=== PATIENT | male | born 2000 | race Caucasian/White ===

== ENCOUNTER 2023-09-18 08:27 | Emergency (ER) | payer OTHER, SELFPAY ==
[2023-09-18 08:28] VITALS: BP 144/72; PULSE 74; RESP 16; TEMP 36.6; O2SAT 97; BMI 24.1
--- NOTE | 2023-09-18 08:44 | EX.ED.DYSGE1 ---
HPI History of Present Illness Chief Complaint: Abscess Narrative Narrative: 23-year-old male presents with his because of abscess on his right chest wall underneath his armpit. He states it has been there for a week and getting worse. It is painful to touch, and growing in size. He denies any fevers or chills. No nausea or vomiting. No significant past medical history. He states he had an abscess in the past which drained by itself. He states that there was a small pustule that he tried to pop a week ago. Since then, he has had increasing swelling on his right chest wall. No purulent drainage currently. PFSH [facility] Home Medications sulfamethoxazole 800 mg-trimethoprim 160 mg tablet (Bactrim DS) 1 tab PO BID #14 tabs 09/18/23 [Rx Last Taken Unknown] Allergy/AdvReac Type Severity Reaction Status Date / Time No Known Allergies Allergy Verified 09/18/23 08:27 ROS ROS ED ROS Narrative Constitutional: No fever, no chills. HEENT: No sore throat. No neck pain. No loss of vision. No rhinorrhea. Cardiovascular: No chest pain. No palpitations. No pedal edema. Respiratory: No cough, no shortness of breath. Abdominal: No abdominal pain. No nausea. No vomiting. Genitourinary: No dysuria. No hematuria. Musculoskeletal: No myalgias. No arthralgias. Neurologic: No headaches. No dizziness. No lightheadedness. Skin: No rash. Positive abscess on right chest wall under her armpit. EXAM Physical Exam Narrative Exam Narrative: Afebrile. Vital signs noted. Toxic-appearing. HEENT: Normocephalic. Atraumatic. PERRL, EOMI. Neck soft and supple. No point tenderness or step off. Cardiovascular: Regular rate and rhythm. No murmurs, rubs, or gallops appreciated. Respiratory: No tachypnea. Lungs clear to auscultation bilaterally. Gastrointestinal: Abdomen soft, nontender, with normoactive bowel sounds. No rebound or guarding. Neurological: Awake. Alert. Nonfocal, nonlateralizing. Skin: No rash. Given abscess with induration and mild fluctuance underneath the right axilla, more on right chest wall. Mild erythema surrounding. Musculoskeletal: No pedal edema. Full range of motion extremities. Const Vital Signs: 09/18/23 08:28 Temperature 98 F Temperature Source Temporal Pulse Rate 74 Respiratory Rate 16 Blood Pressure 144/72 H Blood Pressure Mean 96 Pulse Ox 97 MDM MDM MDM Narrative Medical decision making narrative: As he has a moderately sized abscess on his right chest wall, I do feel that incision and drainage should be performed. He was told of the risk of continued infection and scarring. As he has mild cellulitis, I do feel antibiotics would be indicated in the form of Bactrim. Incision and drainage will be performed. See procedure note for detail. He was given 1 Greer tablet here prior to the procedure for analgesia. See procedure note for details. I feel he can be discharged to follow-up with a primary care provider on Thursday for wound recheck. As the area was mildly cellulitic and it may have been more of an inclusion cyst that was infected based on the discharge, he will be placed on antibiotics in the form of Bactrim DS for the next 7 days to take twice a day. He was told to remove the packing in 48 hours, or return to the emergency department for removal and wound recheck. Disposition is discharged home in stable condition. Procedures Other Procedures Procedure(s): Incision and drainage: Patient prepped with Povidine iodine swab. Lidocaine 1% was injected locally into the area of most fluctuance. Stellate incision was made with a #11 blade. There was a moderate amount of purulent drainage and initially it was serosanguineous. Area was deloculated and irrigated with normal saline. Double tailed 1 inch packing was slightly inserted to keep the incision open. Patient was told of risk of reaccumulation of fluid. He will remove the packing in 48 hours, return to the emergency department, and have a wound check and the next 2 to 3 days. Patient tolerated procedure well. Discharge Plan Triage Chief Complaint: Abscess ED Provider: Lux Trivedi Dx/Rx/DC Orders Clinical Impression: Abscess, Encounter for incision and drainage procedure Instructions: ED Abscess Incision And Drainage, ED Cellulitis, Epidermoid Cyst Infect Antibiotics Prescriptions: New sulfamethoxazole-trimethoprim [Bactrim DS] 800-160 mg tablet 1 tab PO BID Qty: 14 0RF Referrals: Bret Macias MD [Med Staff - Active Staff] - 2 Days for wound check Activity Restrictions/Additional Instructions: Have your wound rechecked on Thursday by primary care provider, or return to the emergency department. Remove packing in 48 hours. Antibiotics as directed. Return with fever, increased redness, new or worsening symptoms. Disposition Disposition: Home, Self Care
[2023-09-18] MEDS: Smz/Tmp Ds Tablet 1 TABLET PO (08:58)
[2023-09-18] MEDS: HYDROcodone Bitartrate/Apap 5/325 Tablet PO (08:58)
[2023-09-18] MEDS: Lidocaine 1% (20 ml mdv) 20 ML Vial INFILT (08:59)
[2023-09-18 09:48] VITALS: BP 127/63; PULSE 15; TEMP 36.6
== END 2023-09-18 09:49 | disposition home or self-care (01) ==
LOC: ED 09:45
PROVIDERS: Emergency Provider Emergency Medicine; PCP Family Medicine; Visit Provider Emergency Medicine
DX: L02.213 Cutaneous abscess of chest wall (principal)
CPT/HCPCS: 10060; 99283